=== PATIENT | male | born 1965 | race African-American/Black ===

== ENCOUNTER 2016-09-17 22:08 | Inpatient (IN) | payer BC, MEDICAID, OTHER ==
[~2016-09-17] VITALS: Ht 175.3 cm; Wt 111.1 kg
[2016-09-18] MEDS ORDERED: IBUPROFEN 600MG TABLET PO STA (00:19)
[2016-09-18] MEDS ORDERED: SODIUM CHLORIDE 0.9% 1,000 ML IV ONE (00:32)
[2016-09-18 00:45] LABS: BASOPHILS % 0.4 % (0.0-2.0); EOSINOPHILS % 1.5 % (0.0-5.0); HEMOGLOBIN. 13.3 g/dL (14.0-18.0); LYMPHOCYTES % 13.2 % (20.0-50.0); MEAN CORPUSCULAR HEMOGLOBIN 29.1 pg (28.0-32.0); MEAN CORPUSCULAR VOLUME 87.4 fL (80.0-94.0); MEAN PLATELET VOLUME 8.9 fl (7.4-10.4); MONOCYTES % 11.5 % (2.0-8.0); NEUTROPHILS % 73.4 % (40.0-76.0); PLATELET 203 x1000/uL (130-400); RED BLOOD CELL COUNT 4.58 mill/uL (4.7-6.1); RED CELL DISTRIBUTION WIDTH 13.7 % (11.6-14.6)
[2016-09-18] MEDS ORDERED: PIPERACILLIN/TAZ 3.375G PREMIX 50 ML IV ONE (00:45)
[2016-09-18] MEDS ORDERED: MORPHINE SULFATE 4 MG/ML CPJ (NOT FOR IM USE) IV ONE (00:45)
[2016-09-18] MEDS ORDERED: VANCOMYCIN 750 MG PREMIX 150 ML IV SCH (00:45)
[2016-09-18] MEDS ORDERED: ONDANSETRON HCL 4MG/2ML VIAL IM ONE (00:45)
[2016-09-18] MEDS ORDERED: KETOROLAC 30MG/ML VIAL IV ONE (00:45)
[2016-09-18 00:50] LABS: CHLORIDE 104 mEq/L (98-107)
[2016-09-18 00:52] LABS: INR 1.1; PROTHROMBIN TIME 11.1 sec
[2016-09-18 00:59] LABS: CARBON DIOXIDE 29 mEq/L (21-32)
[2016-09-18 01:33] LABS: CREATINE KINASE 185 IU/L (39-308); TROPONIN I < 0.02 ng/mL (0.00-0.04)
[2016-09-18 09:00] VITALS: BP 126/85
[2016-09-18 12:00] VITALS: BP 121/83
[2016-09-18] MEDS ORDERED: HYDROCODONE/ACETAMINOPHEN 5/325MG TABLET PO PRN (12:15)
[2016-09-18] MEDS ORDERED: VANCOMYCIN 1500MG in DEXTROSE 5% WATER 250ML IV NR (15:00)
[2016-09-18] MEDS: PIPERACILLIN/TAZ 3.375G PREMIX 50 ML IV SCH ×2 (15:28→20:41)
[2016-09-18 16:00] VITALS: BP 138/85
[2016-09-18] MEDS ORDERED: MESA400C PO (18:14)
[2016-09-18 20:00] VITALS: BP 122/80
[2016-09-18 22:00] VITALS: BP 124/84
[2016-09-19] VITALS (9 sets, daily range): BP systolic 118–132; BP diastolic 74–95
[2016-09-19] MEDS: PIPERACILLIN/TAZ 3.375G PREMIX 50 ML IV SCH ×4 (02:45→20:53)
[2016-09-19] MEDS: VANCOMYCIN 1 G PREMIX 200 ML IV SCH ×2 (02:45→14:44)
[2016-09-19 12:44] LABS: BASOPHILS % 0.5 % (0.0-2.0); EOSINOPHILS % 2.6 % (0.0-5.0); HEMATOCRIT. 37.5 % (42.0-52.0); HEMOGLOBIN. 12.3 g/dL (14.0-18.0); LYMPHOCYTES % 14.2 % (20.0-50.0); MEAN CORPUSCULAR HEMOGLOBIN 28.8 pg (28.0-32.0); MEAN CORPUSCULAR VOLUME 87.9 fL (80.0-94.0); MEAN PLATELET VOLUME 8.7 fl (7.4-10.4); MONOCYTES % 14.2 % (2.0-8.0); NEUTROPHILS % 68.5 % (40.0-76.0); PLATELET 205 x1000/uL (130-400); RED BLOOD CELL COUNT 4.26 mill/uL (4.7-6.1); RED CELL DISTRIBUTION WIDTH 13.7 % (11.6-14.6)
[2016-09-19 12:45] LABS: CHLORIDE 103 mEq/L (98-107)
[2016-09-19 12:54] LABS: CARBON DIOXIDE 33 mEq/L (21-32)
== END 2016-09-19 21:45 | disposition short-term general hospital (02) | DRG 383 ==
LOC: ER 22:08 → 8WST 09-18 02:50 → EDBEDREQSVC 09-18 02:57 → EDBEDREQ 09-18 02:57 → EDBEDREQTM 09-18 02:57 → ENRESERV 09-18 07:16
PROVIDERS: ADMIT Internal Medicine; ATTEND Internal Medicine
DX: L03.114 Cellulitis of left upper limb (principal); M79.81 Nontraumatic hematoma of soft tissue
CPT/HCPCS: 36415; 73200; 73220; 80053; 82550; 83605; 84484; 85025; 85610; 87040; 93971; 96372; 96374; 96375; 99285; J1885; J2270; J2405; J2543; J3370; J7030; J7050; J7060